=== PATIENT | female | born 1985 | race Caucasian/White ===

== ENCOUNTER 2018-08-22 16:50 | Emergency (ER) | payer BC ==
[2018-08-22 17:16] VITALS: BP 114/67
--- NOTE | 2018-08-22 17:56 | ED ---
Psychiatric Complaint - HPI Summary HPI Summary: 33 yr old female was trying to get her computer to work, and she did not feel outlet was working . She tripped the circuit breaker at her house and felt a brief shock with some tingling in her right hand. He then looked up what to do , and she began getting very anxious, SOB, and had uncontrolled sobbing which happens with her panic attacks. she presently feels back to normal. She has not had SOB, palpitations, dizziness, syncope, chest pain. This patient has no raymond on hands or feet. - History Of Current Complaint Chief Complaint: UCGeneralIllness Time Seen by Provider: 08/22/18 17:17 Hx Last Menstrual Period: 07/30/18 - Allergies/Home Medications Allergies/Adverse Reactions: Allergies Allergy/AdvReac Type Severity Reaction Status Date / Time amoxicillin Allergy Unknown Hives Verified 08/22/18 17:05 Home Medications: Home Medications Cetirizine* [ZyrTEC 10 MG TAB*] 10 mg PO DAILY 08/22/18 [History Confirmed 08/22] Fluticasone NASAL SPRAY 50MCG* [Flonase NASAL SPRAY 50MCG*] 2 spray BOTH NARES DAILY 08/22/18 [History Confirmed 08/22/18] Loratadine [Claritin 10 MG CAP] 10 mg PO DAILY 08/22/18 [History Confirmed 08/22] PMH/Surg Hx/FS Hx/Imm Hx Psychiatric History: Reports: Hx Anxiety, Other Psychiatric Issues/Disorders - panic attacks. Infectious Disease History: No Infectious Disease History: Denies: Traveled Outside the [place] in Last 30 Days - Family History Known Family History: Positive: None - Social History Alcohol Use: Occasionally Substance Use Type: Reports: None Smoking Status (MU): Never Smoked Tobacco Review of Systems Constitutional: Negative Positive: Anxious All Other Systems Reviewed And Are Negative: Yes Physical Exam Triage Information Reviewed: Yes Vital Signs On Initial Exam: Initial Vitals Temp Pulse Resp BP Pulse Ox 97.9 F 72 16 114/67 100 08/22/18 17:07 08/22/18 17:07 08/22/18 17:07 08/22/18 17:07 08/22/18 17:07 Vital Signs Reviewed: Yes Appearance: Positive: Well-Appearing, No Pain Distress Skin: Positive: Warm, Skin Color Reflects Adequate Perfusion, Other - no raymond on hands or on the feet Eyes: Positive: EOMI ENT: Positive: Normal ENT inspection Neck: Positive: Nontender Respiratory/Lung Sounds: Positive: Clear to Auscultation, Breath Sounds Present Cardiovascular: Positive: RRR. Negative: Murmur Abdomen Description: Negative: Distended Musculoskeletal: Positive: Strength/ROM Intact Neurological: Positive: Sensory/Motor Intact, Alert, Oriented to Person Place, Time, CN Intact II-III, Normal Gait, Finger to Nose, Speech Normal, Other - proprioception intact in the hands, and fine touch. Psychiatric: Positive: Normal - Korina Coma Scale Best Eye Response: 4 - Spontaneous Best Motor Response: 6 - Obeys Commands Best Verbal Response: 5 - Oriented Coma Scale Total: 15 Diagnostics - Vital Signs Vital Signs Temp Pulse Resp BP Pulse Ox 08/22/18 17:07 97.9 F 72 16 114/67 100 - Laboratory Lab Statement: Any lab studies that have been ordered have been reviewed, and results considered in the medical decision making process. Course/Dx - Course Course Of Treatment: 33 yr old with mild shock and then a panic attack like others she has had. DC home in good condition - Differential Dx/Clinical Impression Provider Diagnosis: Panic attack, Electric shock Discharge - Sign-Out/Discharge Documenting (check all that apply): Patient Departure All imaging exams completed and their final reports reviewed: No Studies - Discharge Plan Condition: Good Disposition: HOME Patient Education Materials: Panic Attack (ED) Referrals: No Primary Care Phys,NOPCP [Primary Care Provider] - [facility] [Outside] - 2 Days - Billing Disposition and Condition Condition: GOOD Disposition: Home
== END 2018-08-22 17:58 | disposition home or self-care (01) ==
LOC: UCCORT 16:50
DX: F41.9 Anxiety disorder, unspecified (principal); T75.4XXA Electrocution, initial encounter; W86.0XXA Exposure to domestic wiring and appliances, initial encounter; Y93.89 Activity, other specified; Y92.008 Other place in unspecified non-institutional (private) residence as the place of occurrence of the external cause; Z88.0 Allergy status to penicillin
CPT/HCPCS: 99201; G0463